=== PATIENT | male | born 2000 | race Hispanic/Latino ===

== ENCOUNTER 2024-03-25 11:52 | Emergency (ER) | payer OTHER ==
[~2024-03-25] VITALS: Ht 188 cm; Wt 90.7 kg
[2024-03-25 14:08] LABS: ADD UA MICROSCOPIC NO; APPEARANCE,URINE CLEAR (CLEAR); BILIRUBIN,URINE NEGATIVE (NEGATIVE); COLOR,URINE LIGHT-YELLOW (YELLOW); GLUCOSE, URINE (UA) NEGATIVE (NEGATIVE); KETONES,URINE NEGATIVE (NEGATIVE); LEUKOCYTE ESTERASE ,URINE NEGATIVE Leu/uL (NEGATIVE); NITRATE,URINE NEGATIVE (NEGATIVE); OCCULT BLOOD,URINE NEGATIVE (NEGATIVE); PH,URINE 7.5 (5.0-8.0); PROTEIN,URINE NEGATIVE (NEGATIVE); UROBILINOGEN,URINE 0.2 mg/dL (0.2-1.0)
[2024-03-25 14:17] LABS: RAPID GROUP A STREP negative (NEGATIVE)
[2024-03-25 14:28] LABS: INFLUENZA TYPE A Negative For Type A (NEGATIVE); INFLUENZA TYPE B Negative For Type B (NEGATIVE)
[2024-03-25 14:56] LABS: COVID19 (SARS ANTIGEN RAPID) PRESUMPTIVE NEGATIVE (NEGATIVE)
[2024-03-25] MEDS ORDERED: PHEN-776 PO (15:30)
[2024-03-25 15:32] VITALS: BP 124/56; PULSE 84; RESP 12; O2SAT 98
== END 2024-03-25 15:37 | disposition home or self-care (01) ==
LOC: EDH 11:52
DX: R30.0 Dysuria (principal); Z20.822 Contact with and (suspected) exposure to COVID-19
CPT/HCPCS: 81003; 87426; 87804; 87880